=== PATIENT | male | born 1955 | race Caucasian/White ===

== ENCOUNTER 2016-08-04 18:18 | Emergency (ER) | payer OTHER ==
[~2016-08-04] VITALS: Ht 177.8 cm; Wt 82.0 kg
[2016-08-04] MEDS ORDERED: ONDANSETRON 2MG/ML, 2ML IVPush ONE (19:00)
[2016-08-04] MEDS ORDERED: SODIUM CHLORIDE FLUSH 10ML SYR IVF ONE (19:00)
[2016-08-04] MEDS ORDERED: SODIUM CHLORIDE 0.9% 1,000ML IVBOLUS ONE ×2 (19:00→22:00)
[2016-08-04 19:16] LABS: ASPARTATE AMINO TRANSFERASE 16 U/L (15-37); BLOOD UREA NITROGEN 15 mg/dL (7-18)
[2016-08-04] MEDS ORDERED: ONDANSETRON 2MG/ML, 2ML ONE (19:21)
[2016-08-04] MEDS ORDERED: PROCHLORPERAZINE 5 MG/ML, 2ML ONE (21:08)
[2016-08-04] MEDS ORDERED: MORPHINE SULFATE 4 MG/ML, 1ML ONE (21:28)
[2016-08-04] MEDS ORDERED: PROCHLORPERAZINE 5 MG/ML, 2ML IVPush ONE (21:30)
[2016-08-04 21:56] LABS: PATH.CAST-FLAG NOT PRESENT; SPERM-FLAG NOT PRESENT; SRC-FLAG NOT PRESENT; XTAL-FLAG NOT PRESENT; YLC-FLAG NOT PRESENT
[2016-08-04] MEDS ORDERED: MORPHINE SULFATE 4 MG/ML, 1ML IVPush PRN (22:00)
[2016-08-04 23:04] VITALS: BP 100/56
== END 2016-08-04 23:05 | disposition home or self-care (01) ==
LOC: ED 19:00
DX: R11.2 Nausea with vomiting, unspecified (principal); R10.13 Epigastric pain; E78.5 Hyperlipidemia, unspecified; I10 Essential (primary) hypertension; Z87.891 Personal history of nicotine dependence
CPT/HCPCS: 36415; 74020; 80053; 81001; 83690; 85025; 96361; 96374; 96375; 99285; J0780; J2405; J7030

== ENCOUNTER 2016-08-12 16:01 | Emergency (ER) | payer OTHER ==
[~2016-08-12] VITALS: Ht 177.8 cm; Wt 80.9 kg
[2016-08-12] MEDS ORDERED: ONDANSETRON 2MG/ML, 2ML IVPush ONE (16:30)
[2016-08-12] MEDS ORDERED: FAMOTIDINE 20 MG/2 ML IVP ONE (16:30)
[2016-08-12] MEDS ORDERED: SODIUM CHLORIDE 0.9% 1,000ML IVBOLUS ONE ×2 (16:30→17:00)
[2016-08-12] MEDS ORDERED: ONDANSETRON 2MG/ML, 2ML ONE (17:39)
[2016-08-12] MEDS ORDERED: FAMOTIDINE 20 MG/2 ML ONE (17:40)
[2016-08-12] MEDS ORDERED: MORPHINE SULFATE 4 MG/ML, 1ML IVPush PRN (18:30)
[2016-08-12 18:35] LABS: ASPARTATE AMINO TRANSFERASE 7 U/L (15-37); BLOOD UREA NITROGEN 13 mg/dL (7-18)
[2016-08-12] MEDS ORDERED: OMNIPAQUE 350 MG/ML, 100ML BOTTLE ONE (19:15)
[2016-08-12 21:16] VITALS: BP 126/63
== END 2016-08-12 21:18 | disposition home or self-care (01) ==
LOC: ED 16:37
DX: K29.00 Acute gastritis without bleeding (principal); E05.90 Thyrotoxicosis, unspecified without thyrotoxic crisis or storm; E78.5 Hyperlipidemia, unspecified; I10 Essential (primary) hypertension
CPT/HCPCS: 36415; 74177; 80053; 83690; 84439; 84443; 85025; 96361; 96374; 96375; 99285; J2405; J7030; Q9967; S0028

== ENCOUNTER 2016-08-17 12:00 | Inpatient (IN) | payer OTHER ==
[~2016-08-17] VITALS: Ht 177.8 cm; Wt 85.4 kg
[2016-08-17] MEDS ORDERED: MORPHINE SULFATE 4 MG/ML, 1ML ONE (13:28)
[2016-08-17] MEDS ORDERED: FAMOTIDINE 20 MG/2 ML ONE (13:28)
[2016-08-17] MEDS ORDERED: METOCLOPRAMIDE 5 MG/ML, 2ML ONE (13:28)
[2016-08-17] MEDS ORDERED: DIPHENHYDRAMINE 50 MG/ML, 1ML ONE (13:28)
[2016-08-17] MEDS ORDERED: DIPHENHYDRAMINE 50 MG/ML, 1ML IVPush ONE (13:30)
[2016-08-17] MEDS ORDERED: METOCLOPRAMIDE 5 MG/ML, 2ML IVPush ONE (13:30)
[2016-08-17] MEDS ORDERED: SODIUM CHLORIDE FLUSH 10ML SYR IVF ONE (13:30)
[2016-08-17] MEDS ORDERED: FAMOTIDINE 20 MG/2 ML IVPush ONE (13:30)
[2016-08-17] MEDS ORDERED: SODIUM CHLORIDE 0.9% 1,000ML IVBOLUS ONE (13:30)
[2016-08-17] MEDS: MORPHINE SULFATE 4 MG/ML, 1ML IVPush PRN (13:38)
[2016-08-17 13:47] LABS: ASPARTATE AMINO TRANSFERASE 8 U/L (15-37); BLOOD UREA NITROGEN 46 mg/dL (7-18)
[2016-08-17] MEDS ORDERED: LISI1TAB5 PO (14:10)
[2016-08-17] MEDS ORDERED: LOVA40TA2 PO (14:10)
[2016-08-17 14:13] LABS: IS PT STATUS REG ER OR PRE ER? YES
[2016-08-17 18:48] VITALS: BP 155/81
[2016-08-17] MEDS ORDERED: ONDANSETRON 2MG/ML, 2ML IVPush PRN (19:00)
[2016-08-17] MEDS ORDERED: METOCLOPRAMIDE 5 MG/ML, 2ML IVPush PRN (19:00)
[2016-08-17] MEDS: SODIUM CHLORIDE 0.9% 1,000 ML IV SCH (19:27)
[2016-08-17] MEDS ORDERED: POTASSIUM CHLORIDE 40 MEQ in SODIUM CHLORIDE 0.9% 500 ML IV ONE (19:30)
[2016-08-17 19:33] VITALS: BP 117/59
[2016-08-17] MEDS: HEPARIN 5,000 UNITS/ML, 1ML SQ SCH (19:33)
[2016-08-17] MEDS: LOVASTATIN 40 MG TABLET PO SCH (20:14)
[2016-08-17] MEDS: morphine SULFATE 10 MG/ML, 1ML IVPush PRN (22:48)
[2016-08-18 03:25] VITALS: BP 103/55
[2016-08-18] MEDS: morphine SULFATE 10 MG/ML, 1ML IVPush PRN ×4 (04:36→20:39)
[2016-08-18 06:21] VITALS: BP 101/65
[2016-08-18] MEDS: SODIUM CHLORIDE 0.9% 1,000 ML IV SCH (06:26)
[2016-08-18] MEDS: HEPARIN 5,000 UNITS/ML, 1ML SQ SCH ×2 (06:28→19:10)
[2016-08-18 07:34] LABS: BLOOD UREA NITROGEN 33 mg/dL (7-18)
[2016-08-18] MEDS: FAMOTIDINE 20 MG/2 ML IVPush SCH (09:12)
[2016-08-18] MEDS: MORPHINE SULFATE 4 MG/ML, 1ML IVPush PRN (09:12)
[2016-08-18 12:04] VITALS: BP 109/59
[2016-08-18] MEDS: PANTOPRAZOLE 80 MG in SODIUM CHLORIDE 0.9% 100 ML IV SCH (16:49)
[2016-08-18] MEDS ORDERED: POTASSIUM CHLORIDE 20 MEQ in SODIUM CHLORIDE 0.9% 1,000 ML IV SCH (18:34)
[2016-08-18 19:35] VITALS: BP 120/95
[2016-08-18] MEDS: LOVASTATIN 40 MG TABLET PO SCH (20:39)
[2016-08-19] MEDS: POTASSIUM CHLORIDE 20 MEQ in SODIUM CHLORIDE 0.9% 1,000 ML IV SCH ×3 (01:51→20:41)
[2016-08-19] MEDS: PANTOPRAZOLE 80 MG in SODIUM CHLORIDE 0.9% 100 ML IV SCH ×2 (01:51→16:17)
[2016-08-19 01:54] VITALS: BP 114/63
[2016-08-19] MEDS: morphine SULFATE 10 MG/ML, 1ML IVPush PRN (02:03)
[2016-08-19 05:57] LABS: ASPARTATE AMINO TRANSFERASE 12 U/L (15-37); BLOOD UREA NITROGEN 21 mg/dL (7-18)
[2016-08-19] MEDS: HEPARIN 5,000 UNITS/ML, 1ML SQ SCH ×2 (06:24→19:12)
[2016-08-19] MEDS ORDERED: MORPHINE SULFATE 4 MG/ML, 1ML ONE (08:15)
[2016-08-19 08:30] VITALS: BP 116/56
[2016-08-19] MEDS: FAMOTIDINE 20 MG/2 ML IVPush SCH (08:54)
[2016-08-19] MEDS ORDERED: FENTANYL PF 100 MCG/2ML ONE (12:42)
[2016-08-19] MEDS ORDERED: MIDAZOLAM 1 MG/ML, 5ML ONE (12:43)
[2016-08-19 14:30] VITALS: BP 122/71
[2016-08-19 20:00] VITALS: BP 151/84
[2016-08-19] MEDS: LOVASTATIN 40 MG TABLET PO SCH (20:39)
[2016-08-20 01:50] VITALS: BP 117/58
[2016-08-20] MEDS: PANTOPRAZOLE 80 MG in SODIUM CHLORIDE 0.9% 100 ML IV SCH ×3 (03:01→23:28)
[2016-08-20] MEDS: POTASSIUM CHLORIDE 20 MEQ in SODIUM CHLORIDE 0.9% 1,000 ML IV SCH ×3 (05:18→23:28)
[2016-08-20] MEDS: HEPARIN 5,000 UNITS/ML, 1ML SQ SCH ×2 (06:27→19:00)
[2016-08-20 08:30] VITALS: BP 149/75
[2016-08-20] MEDS: FAMOTIDINE 20 MG/2 ML IVPush SCH (09:19)
[2016-08-20] MEDS ORDERED: SINCALIDE (KINEVAC) 5 MCG ONE (13:12)
[2016-08-20 14:30] VITALS: BP 154/77
[2016-08-20] MEDS: morphine SULFATE 10 MG/ML, 1ML IVPush PRN ×2 (17:08→22:26)
[2016-08-20 19:25] VITALS: BP 104/68
[2016-08-20] MEDS: LOVASTATIN 40 MG TABLET PO SCH (21:07)
[2016-08-21 02:04] VITALS: BP 109/69
[2016-08-21] MEDS ORDERED: BUPIVACAINE/PF-EPI 0.5% 1:200K ONE (05:43)
[2016-08-21] MEDS ORDERED: FENTANYL PF 250 MCG/5ML ONE (06:44)
[2016-08-21] MEDS ORDERED: METOCLOPRAMIDE 5 MG/ML, 2ML ONE (06:51)
[2016-08-21] MEDS ORDERED: GLYCOPYRROLATE 0.2MG/1ML ONE (06:51)
[2016-08-21] MEDS ORDERED: PROPOFOL 10 MG/ML, 20ML ONE (06:51)
[2016-08-21] MEDS ORDERED: NEOSTIGMINE 1 MG/ML, 10ML ONE (06:51)
[2016-08-21] MEDS ORDERED: ONDANSETRON 2MG/ML, 2ML ONE (06:51)
[2016-08-21] MEDS ORDERED: SUCCINYLCHOLINE 20 MG/ML, 10ML ONE (06:51)
[2016-08-21] MEDS ORDERED: KETOROLAC 30 MG/1 ML ONE (06:51)
[2016-08-21] MEDS ORDERED: ROCURONIUM 10 MG/ML ONE (06:51)
[2016-08-21] MEDS ORDERED: DEXAMETHASONE 4 MG/ML, 1ML ONE (06:51)
[2016-08-21] MEDS ORDERED: CEFAZOLIN 1,000 MG ONE (06:51)
[2016-08-21] MEDS: HEPARIN 5,000 UNITS/ML, 1ML SQ SCH (07:00)
[2016-08-21] MEDS: POTASSIUM CHLORIDE 20 MEQ in SODIUM CHLORIDE 0.9% 1,000 ML IV SCH (07:10)
[2016-08-21] MEDS: FAMOTIDINE 20 MG/2 ML IVPush SCH (07:15)
[2016-08-21] MEDS ORDERED: ONDANSETRON 2MG/ML, 2ML IVPush PRN (07:30)
[2016-08-21] MEDS ORDERED: MEPERIDINE/PF 25MG/0.5ML IVPush PRN (07:30)
[2016-08-21] MEDS ORDERED: MIDAZOLAM 1 MG/ML, 2ML IV PRN (07:30)
[2016-08-21] MEDS ORDERED: OXYcodone 5 MG/5 ML ORAL.SOL UDC PO PRN (07:30)
[2016-08-21] MEDS ORDERED: FENTANYL PF 100 MCG/2ML ONE ×2 (07:37→08:00)
[2016-08-21] MEDS ORDERED: MEPERIDINE/PF 25MG/0.5ML ONE (07:37)
[2016-08-21] MEDS ORDERED: OXYcodone 5 MG/5 ML ORAL.SOL UDC ONE (07:37)
[2016-08-21] MEDS ORDERED: LABETALOL 5MG/ML, 20ML ONE (07:44)
[2016-08-21] MEDS: FENTANYL PF 100 MCG/2ML IV PRN ×4 (07:45→08:30)
[2016-08-21] MEDS: LABETALOL 5MG/ML, 20ML IV PRN ×2 (07:50→07:55)
[2016-08-21] MEDS ORDERED: hydrALAzine 20 MG/ML, 1ML ONE (07:54)
[2016-08-21] MEDS ORDERED: HYDROmorphone 1 MG/ML, 1ML ONE (08:00)
[2016-08-21] MEDS: hydrALAzine 20 MG/ML, 1ML IV PRN ×2 (08:01→08:26)
[2016-08-21] MEDS: HYDROmorphone 1 MG/ML, 1ML IV PRN ×2 (08:04→08:10)
[2016-08-21 09:15] VITALS: BP 142/78
[2016-08-21] MEDS ORDERED: POTASSIUM CHLORIDE 20 MEQ in SODIUM CHLORIDE 0.9% 1,000 ML IV SCH (09:30)
[2016-08-21] MEDS: NS + 20MEQ KCL 1,000 ML IV SCH ×2 (11:48→21:07)
[2016-08-21] MEDS: CEFOTETAN PMX 1GM/50ML 50 ML IVPB SCH ×2 (11:48→22:49)
[2016-08-21] MEDS: ENOXAPARIN 40 MG/0.4 ML SQ SCH (11:49)
[2016-08-21] MEDS: OXYcodone/APAP 5/325MG TABLET PO PRN ×2 (12:03→17:29)
[2016-08-21] MEDS: PANTOPRAZOLE 80 MG in SODIUM CHLORIDE 0.9% 100 ML IV SCH ×2 (12:03→21:07)
[2016-08-21] MEDS: morphine SULFATE 10 MG/ML, 1ML IV PRN ×3 (14:58→21:42)
[2016-08-21 15:00] VITALS: BP_SYST 148; BP_SYST 165; BP_DIAS 82; BP_DIAS 84
[2016-08-21 19:01] VITALS: BP 162/87
[2016-08-21] MEDS: LOVASTATIN 40 MG TABLET PO SCH (21:07)
[2016-08-21] MEDS: ONDANSETRON 2MG/ML, 2ML IV PRN (21:41)
[2016-08-22] MEDS: morphine SULFATE 10 MG/ML, 1ML IV PRN ×3 (00:46→21:24)
[2016-08-22 01:05] VITALS: BP 158/84
[2016-08-22] MEDS: TEMAZEPAM 15 MG CAPSULE PO PRN (02:01)
[2016-08-22] MEDS: OXYcodone/APAP 5/325MG TABLET PO PRN ×3 (04:32→22:12)
[2016-08-22] MEDS: NS + 20MEQ KCL 1,000 ML IV SCH ×2 (05:53→14:07)
[2016-08-22 05:58] LABS: BLOOD UREA NITROGEN 6 mg/dL (7-18)
[2016-08-22 06:03] LABS: ASPARTATE AMINO TRANSFERASE 26 U/L (15-37)
[2016-08-22 06:37] VITALS: BP 137/86
[2016-08-22] MEDS: PANTOPRAZOLE 80 MG in SODIUM CHLORIDE 0.9% 100 ML IV SCH (07:41)
[2016-08-22] MEDS ORDERED: BISACODYL 10 MG SUPP PR PRN (09:30)
[2016-08-22] MEDS: DOCUSATE 100 MG CAPSULE PO SCH ×2 (10:27→21:23)
[2016-08-22] MEDS: FAMOTIDINE 20 MG TABLET PO SCH (10:27)
[2016-08-22] MEDS: OMEPRAZOLE 20 MG CAPSULE.DR PO SCH (10:27)
[2016-08-22] MEDS: ENOXAPARIN 40 MG/0.4 ML SQ SCH (12:00)
[2016-08-22 12:05] VITALS: BP 131/77
[2016-08-22] MEDS: POLYETHYLENE GLYCOL 17 GM PACKET PO PRN (14:29)
[2016-08-22 19:08] VITALS: BP 164/94
[2016-08-22] MEDS: LOVASTATIN 40 MG TABLET PO SCH (21:23)
[2016-08-23 02:25] VITALS: BP 156/89
[2016-08-23] MEDS: NS + 20MEQ KCL 1,000 ML IV SCH ×2 (02:36→15:43)
[2016-08-23] MEDS: morphine SULFATE 10 MG/ML, 1ML IV PRN ×3 (03:45→21:02)
[2016-08-23 05:46] LABS: BLOOD UREA NITROGEN 7 mg/dL (7-18)
[2016-08-23 06:30] VITALS: BP 160/86
[2016-08-23] MEDS: DOCUSATE 100 MG CAPSULE PO SCH ×2 (09:18→20:46)
[2016-08-23] MEDS: OMEPRAZOLE 20 MG CAPSULE.DR PO SCH (09:18)
[2016-08-23] MEDS: FAMOTIDINE 20 MG TABLET PO SCH (09:18)
[2016-08-23] MEDS: ONDANSETRON 2MG/ML, 2ML IV PRN (09:22)
[2016-08-23] MEDS: OXYcodone/APAP 5/325MG TABLET PO PRN (11:02)
[2016-08-23] MEDS: ENOXAPARIN 40 MG/0.4 ML SQ SCH (12:11)
[2016-08-23 12:52] VITALS: BP 148/83
[2016-08-23] MEDS ORDERED: MAGNESIUM CITRATE 300ML ORAL SOL PO PRN (13:30)
[2016-08-23] MEDS: METOCLOPRAMIDE 5 MG/ML, 2ML IVPush SCH ×2 (14:01→20:46)
[2016-08-23] MEDS: METHYLNALTREXONE 12 MG/0.6 ML SQ SCH (14:02)
[2016-08-23] MEDS: CYCLOBENZAPRINE 10 MG TABLET PO PRN (15:43)
[2016-08-23 19:14] VITALS: BP 175/99
[2016-08-23 20:34] VITALS: BP 165/97
[2016-08-23] MEDS: LOVASTATIN 40 MG TABLET PO SCH (20:46)
[2016-08-24 01:40] VITALS: BP 157/92
[2016-08-24] MEDS: morphine SULFATE 10 MG/ML, 1ML IV PRN ×3 (02:08→11:48)
[2016-08-24] MEDS: METOCLOPRAMIDE 5 MG/ML, 2ML IVPush SCH ×4 (02:09→20:43)
[2016-08-24] MEDS: CYCLOBENZAPRINE 10 MG TABLET PO PRN (02:27)
[2016-08-24] MEDS ORDERED: LORazepam 1MG TABLET PO ONE (02:30)
[2016-08-24] MEDS: NS + 20MEQ KCL 1,000 ML IV SCH ×2 (05:53→18:34)
[2016-08-24 06:13] LABS: BLOOD UREA NITROGEN 8 mg/dL (7-18)
[2016-08-24 07:51] VITALS: BP 169/105
[2016-08-24] MEDS: DOCUSATE 100 MG CAPSULE PO SCH ×2 (08:55→20:42)
[2016-08-24] MEDS: OXYcodone/APAP 5/325MG TABLET PO PRN ×3 (08:55→22:36)
[2016-08-24] MEDS: POLYETHYLENE GLYCOL 17 GM PACKET PO PRN (08:55)
[2016-08-24] MEDS: FAMOTIDINE 20 MG TABLET PO SCH (08:55)
[2016-08-24] MEDS: OMEPRAZOLE 20 MG CAPSULE.DR PO SCH (08:55)
[2016-08-24] MEDS ORDERED: ENALAPRILAT 1.25 MG/ML, 2ML IV PRN (09:30)
[2016-08-24] MEDS: ENOXAPARIN 40 MG/0.4 ML SQ SCH (11:48)
[2016-08-24 12:45] VITALS: BP 137/85
[2016-08-24 20:39] VITALS: BP 138/76
[2016-08-24] MEDS: LOVASTATIN 40 MG TABLET PO SCH (20:43)
[2016-08-25] MEDS: METOCLOPRAMIDE 5 MG/ML, 2ML IVPush SCH ×4 (03:27→20:34)
[2016-08-25] MEDS: OXYcodone/APAP 5/325MG TABLET PO PRN ×4 (03:29→18:33)
[2016-08-25 03:31] VITALS: BP 128/84
[2016-08-25 06:00] LABS: ASPARTATE AMINO TRANSFERASE 26 U/L (15-37); BLOOD UREA NITROGEN 7 mg/dL (7-18)
[2016-08-25 07:26] VITALS: BP 159/91
[2016-08-25] MEDS: DOCUSATE 100 MG CAPSULE PO SCH ×2 (08:18→20:35)
[2016-08-25] MEDS: NS + 20MEQ KCL 1,000 ML IV SCH (08:18)
[2016-08-25] MEDS: OMEPRAZOLE 20 MG CAPSULE.DR PO SCH (08:18)
[2016-08-25] MEDS: FAMOTIDINE 20 MG TABLET PO SCH (08:18)
[2016-08-25] MEDS: POLYETHYLENE GLYCOL 17 GM PACKET PO PRN (08:28)
[2016-08-25] MEDS: ENOXAPARIN 40 MG/0.4 ML SQ SCH (11:48)
[2016-08-25 12:58] VITALS: BP 111/80
[2016-08-25] MEDS: METHYLNALTREXONE 12 MG/0.6 ML SQ SCH (13:30)
[2016-08-25 18:22] VITALS: BP 112/77
[2016-08-25] MEDS: LOVASTATIN 40 MG TABLET PO SCH (20:35)
[2016-08-25] MEDS: morphine SULFATE 10 MG/ML, 1ML IV PRN (20:35)
[2016-08-25] MEDS ORDERED: SODIUM CHLORIDE 0.9% 500 ML IV SCH (22:30)
[2016-08-26] MEDS ORDERED: SODIUM CHLORIDE 0.9% 500 ML IV SCH (00:30)
[2016-08-26 00:50] VITALS: BP 126/83
[2016-08-26 01:42] VITALS: BP 125/88
[2016-08-26] MEDS ORDERED: DILTIAZEM 5 MG/ML, 5ML IVPush ONE ×2 (02:20→09:30)
[2016-08-26] MEDS: METOCLOPRAMIDE 5 MG/ML, 2ML IVPush SCH ×4 (06:07→20:38)
[2016-08-26] MEDS: OXYcodone/APAP 5/325MG TABLET PO PRN ×3 (06:09→20:39)
[2016-08-26 08:21] VITALS: BP 118/89
[2016-08-26] MEDS: morphine SULFATE 10 MG/ML, 1ML IV PRN ×2 (09:02→18:10)
[2016-08-26] MEDS: OMEPRAZOLE 20 MG CAPSULE.DR PO SCH (09:02)
[2016-08-26] MEDS: DOCUSATE 100 MG CAPSULE PO SCH ×2 (09:02→20:38)
[2016-08-26] MEDS: FAMOTIDINE 20 MG TABLET PO SCH (09:02)
[2016-08-26] MEDS ORDERED: OMNIPAQUE 350 MG/ML, 100ML BOTTLE ONE (10:14)
[2016-08-26] MEDS ORDERED: METOPROLOL 1 MG/ML, 5ML IVPush ONE (11:00)
[2016-08-26 11:11] LABS: BLOOD UREA NITROGEN 7 mg/dL (7-18)
[2016-08-26 11:15] LABS: IS PT STATUS REG ER OR PRE ER? NO
[2016-08-26] MEDS: ENOXAPARIN 40 MG/0.4 ML SQ SCH (11:27)
[2016-08-26] MEDS: METOPROLOL TARTRATE 25 MG TABLET PO SCH ×2 (12:48→18:10)
[2016-08-26 14:49] VITALS: BP 112/83
[2016-08-26 18:58] VITALS: BP 107/75
[2016-08-26] MEDS: LOVASTATIN 40 MG TABLET PO SCH (20:39)
[2016-08-26] MEDS: TEMAZEPAM 15 MG CAPSULE PO PRN (20:39)
[2016-08-27] MEDS: morphine SULFATE 10 MG/ML, 1ML IV PRN ×4 (00:17→19:32)
[2016-08-27 02:15] VITALS: BP 112/84
[2016-08-27] MEDS: METOCLOPRAMIDE 5 MG/ML, 2ML IVPush SCH ×4 (03:04→20:16)
[2016-08-27] MEDS: METOPROLOL TARTRATE 25 MG TABLET PO SCH ×2 (06:03→17:29)
[2016-08-27 08:00] VITALS: BP 121/81
[2016-08-27] MEDS ORDERED: MAGNESIUM SULFATE PMX 2GM/50ML 50 ML IV ONE (08:00)
[2016-08-27] MEDS ORDERED: ADENOSINE 6 MG/2 ML IVPush ONE (08:00)
[2016-08-27] MEDS: FAMOTIDINE 20 MG TABLET PO SCH (08:03)
[2016-08-27] MEDS: OMEPRAZOLE 20 MG CAPSULE.DR PO SCH (08:03)
[2016-08-27] MEDS: DOCUSATE 100 MG CAPSULE PO SCH ×2 (08:03→20:16)
[2016-08-27] MEDS: APIXABAN 5 MG TABLET PO SCH ×2 (10:35→20:16)
[2016-08-27] MEDS: FLECAINIDE 50MG TABLET PO SCH ×2 (10:36→20:17)
[2016-08-27] MEDS: CIPROFLOXACIN/PMX 400MG/200ML 200 ML IV SCH ×2 (12:40→23:12)
[2016-08-27] MEDS: OXYcodone/APAP 5/325MG TABLET PO PRN ×2 (12:40→20:17)
[2016-08-27] MEDS: METHYLNALTREXONE 12 MG/0.6 ML SQ SCH (12:40)
[2016-08-27 13:57] VITALS: BP 101/72
[2016-08-27] MEDS: METRONIDAZOLE PMX 500MG/100ML 100 ML IV SCH ×2 (14:48→22:01)
[2016-08-27 19:36] VITALS: BP 113/72
[2016-08-27] MEDS: LOVASTATIN 40 MG TABLET PO SCH (20:16)
[2016-08-28 01:25] VITALS: BP 110/73
[2016-08-28] MEDS: morphine SULFATE 10 MG/ML, 1ML IV PRN ×3 (01:42→06:14)
[2016-08-28] MEDS: OXYcodone/APAP 5/325MG TABLET PO PRN ×2 (02:02→21:05)
[2016-08-28] MEDS: METOCLOPRAMIDE 5 MG/ML, 2ML IVPush SCH ×4 (02:58→20:37)
[2016-08-28 06:00] LABS: BLOOD UREA NITROGEN 5 mg/dL (7-18)
[2016-08-28] MEDS: METOPROLOL TARTRATE 25 MG TABLET PO SCH ×2 (06:08→18:18)
[2016-08-28] MEDS: METRONIDAZOLE PMX 500MG/100ML 100 ML IV SCH ×3 (06:08→20:55)
[2016-08-28 07:16] LABS: HEPATITIS C VIRUS ANTIBODY Reactive (Nonreactive)
[2016-08-28 08:25] VITALS: BP 104/74
[2016-08-28] MEDS: HYDROmorphone 2 MG/ML, 1ML IVPush PRN ×5 (10:05→20:22)
[2016-08-28] MEDS: FLECAINIDE 50MG TABLET PO SCH (10:14)
[2016-08-28] MEDS: OMEPRAZOLE 20 MG CAPSULE.DR PO SCH (10:14)
[2016-08-28] MEDS: DOCUSATE 100 MG CAPSULE PO SCH ×2 (10:14→20:37)
[2016-08-28] MEDS: FAMOTIDINE 20 MG TABLET PO SCH (10:15)
[2016-08-28] MEDS: APIXABAN 5 MG TABLET PO SCH (10:15)
[2016-08-28] MEDS ORDERED: HEPARIN 5,000 UNITS/ML, 1ML IV PRN (11:00)
[2016-08-28] MEDS ORDERED: HEPARIN 5,000 UNITS/ML, 1ML IV ONE ×2 (11:00→13:00)
[2016-08-28] MEDS ORDERED: HEPARIN 25,000 UNITS/500ML PMX 500 ML IV PRN (11:00)
[2016-08-28] MEDS: CIPROFLOXACIN/PMX 400MG/200ML 200 ML IV SCH ×2 (11:32→22:29)
[2016-08-28 15:01] VITALS: BP 105/70
[2016-08-28 19:00] VITALS: BP 113/77
[2016-08-28] MEDS ORDERED: HEPARIN 1,000 UNITS/ML, 10ML IV ONE (19:00)
[2016-08-28] MEDS: LOVASTATIN 40 MG TABLET PO SCH (20:37)
[2016-08-28] MEDS: FLECAINIDE 100MG TABLET PO SCH (20:38)
[2016-08-28] MEDS: SIMETHICONE 80 MG CHEW TAB PO PRN (22:29)
[2016-08-29 00:43] VITALS: BP 121/83
[2016-08-29] MEDS: HYDROmorphone 2 MG/ML, 1ML IVPush PRN ×5 (00:45→17:27)
[2016-08-29] MEDS: OXYcodone/APAP 5/325MG TABLET PO PRN ×3 (02:27→20:18)
[2016-08-29] MEDS: METOCLOPRAMIDE 5 MG/ML, 2ML IVPush SCH ×4 (02:28→20:22)
[2016-08-29 03:19] LABS: BLOOD UREA NITROGEN 8 mg/dL (7-18)
[2016-08-29] MEDS: METOPROLOL TARTRATE 25 MG TABLET PO SCH ×2 (06:18→17:26)
[2016-08-29] MEDS: SIMETHICONE 80 MG CHEW TAB PO PRN ×3 (06:18→20:22)
[2016-08-29] MEDS: METRONIDAZOLE PMX 500MG/100ML 100 ML IV SCH ×3 (06:31→21:45)
[2016-08-29] MEDS: FLECAINIDE 100MG TABLET PO SCH ×2 (08:21→20:24)
[2016-08-29] MEDS: OMEPRAZOLE 20 MG CAPSULE.DR PO SCH (08:22)
[2016-08-29] MEDS: DOCUSATE 100 MG CAPSULE PO SCH ×2 (08:22→20:22)
[2016-08-29] MEDS: FAMOTIDINE 20 MG TABLET PO SCH (08:22)
[2016-08-29 08:33] VITALS: BP 112/76
[2016-08-29] MEDS: CIPROFLOXACIN/PMX 400MG/200ML 200 ML IV SCH ×2 (10:46→22:57)
[2016-08-29] MEDS: ONDANSETRON 2MG/ML, 2ML IV PRN (13:08)
[2016-08-29] MEDS: METHYLNALTREXONE 12 MG/0.6 ML SQ SCH (13:58)
[2016-08-29 14:39] VITALS: BP 121/81
[2016-08-29 20:00] VITALS: BP 116/77
[2016-08-29] MEDS: LOVASTATIN 40 MG TABLET PO SCH (20:23)
[2016-08-30] MEDS: OXYcodone/APAP 5/325MG TABLET PO PRN ×3 (00:25→19:43)
[2016-08-30 01:45] VITALS: BP 114/76
[2016-08-30] MEDS: METOCLOPRAMIDE 5 MG/ML, 2ML IVPush SCH ×4 (03:00→21:52)
[2016-08-30 06:08] LABS: BLOOD UREA NITROGEN 10 mg/dL (7-18)
[2016-08-30 06:12] LABS: ASPARTATE AMINO TRANSFERASE 8 U/L (15-37)
[2016-08-30] MEDS: METOPROLOL TARTRATE 25 MG TABLET PO SCH ×2 (06:22→17:45)
[2016-08-30] MEDS: METRONIDAZOLE PMX 500MG/100ML 100 ML IV SCH ×3 (06:23→21:59)
[2016-08-30] MEDS: HYDROmorphone 2 MG/ML, 1ML IVPush PRN ×5 (06:27→21:51)
[2016-08-30] MEDS: FLECAINIDE 100MG TABLET PO SCH ×2 (08:19→21:51)
[2016-08-30] MEDS: DOCUSATE 100 MG CAPSULE PO SCH ×2 (08:19→21:59)
[2016-08-30] MEDS: FAMOTIDINE 20 MG TABLET PO SCH (08:19)
[2016-08-30] MEDS: OMEPRAZOLE 20 MG CAPSULE.DR PO SCH (08:20)
[2016-08-30 09:15] VITALS: BP 108/73
[2016-08-30] MEDS ORDERED: MIDAZOLAM 1 MG/ML, 2ML ONE (09:55)
[2016-08-30] MEDS ORDERED: FENTANYL PF 100 MCG/2ML ONE (09:55)
[2016-08-30] MEDS: CIPROFLOXACIN/PMX 400MG/200ML 200 ML IV SCH (12:50)
[2016-08-30] MEDS ORDERED: SUCCINYLCHOLINE 20 MG/ML, 10ML ONE (15:23)
[2016-08-30] MEDS ORDERED: ROCURONIUM 10 MG/ML ONE (15:23)
[2016-08-30] MEDS ORDERED: PHENYLEPHRINE 10 MG/ML ONE (15:23)
[2016-08-30] MEDS ORDERED: DEXAMETHASONE 4 MG/ML, 1ML ONE (15:23)
[2016-08-30] MEDS ORDERED: ONDANSETRON 2MG/ML, 2ML ONE (15:23)
[2016-08-30] MEDS ORDERED: PROPOFOL 10 MG/ML, 20ML ONE (15:23)
[2016-08-30] MEDS: SIMETHICONE 80 MG CHEW TAB PO PRN (17:45)
[2016-08-30 19:01] VITALS: BP 108/71
[2016-08-30] MEDS: LOVASTATIN 40 MG TABLET PO SCH (21:51)
[2016-08-31] MEDS: OXYcodone/APAP 5/325MG TABLET PO PRN ×3 (01:05→21:07)
[2016-08-31] MEDS: CIPROFLOXACIN/PMX 400MG/200ML 200 ML IV SCH ×2 (01:09→13:16)
[2016-08-31] MEDS: HYDROmorphone 2 MG/ML, 1ML IVPush PRN ×5 (03:28→22:41)
[2016-08-31] MEDS: METOCLOPRAMIDE 5 MG/ML, 2ML IVPush SCH ×4 (03:28→21:06)
[2016-08-31 03:33] VITALS: BP 131/81
[2016-08-31 05:51] LABS: BLOOD UREA NITROGEN 9 mg/dL (7-18)
[2016-08-31 05:52] LABS: ASPARTATE AMINO TRANSFERASE 17 U/L (15-37)
[2016-08-31 05:54] LABS: DIFF TOTAL CELLS COUNTED 100 CELL DIFF
[2016-08-31 05:55] LABS: VERIFY COUNTS? YES
[2016-08-31] MEDS: METOPROLOL TARTRATE 25 MG TABLET PO SCH ×2 (05:56→17:27)
[2016-08-31 05:57] LABS: LARGE PLATELETS 1+
[2016-08-31] MEDS: METRONIDAZOLE PMX 500MG/100ML 100 ML IV SCH ×3 (05:57→22:41)
[2016-08-31] MEDS ORDERED: FUROSEMIDE 40 MG/4 ML IV ONE (07:35)
[2016-08-31 08:24] VITALS: BP 115/79
[2016-08-31] MEDS: OMEPRAZOLE 20 MG CAPSULE.DR PO SCH (08:24)
[2016-08-31] MEDS: DOCUSATE 100 MG CAPSULE PO SCH ×2 (08:24→21:00)
[2016-08-31] MEDS: FLECAINIDE 100MG TABLET PO SCH ×2 (08:24→21:07)
[2016-08-31] MEDS: FAMOTIDINE 20 MG TABLET PO SCH (08:24)
[2016-08-31] MEDS: METHYLNALTREXONE 12 MG/0.6 ML SQ SCH (13:17)
[2016-08-31 21:05] VITALS: BP 112/75
[2016-08-31] MEDS: LOVASTATIN 40 MG TABLET PO SCH (21:07)
[2016-09-01] MEDS: CIPROFLOXACIN/PMX 400MG/200ML 200 ML IV SCH ×2 (01:18→14:00)
[2016-09-01 01:21] VITALS: BP 119/79
[2016-09-01] MEDS: TEMAZEPAM 15 MG CAPSULE PO PRN (02:23)
[2016-09-01] MEDS: METOCLOPRAMIDE 5 MG/ML, 2ML IVPush SCH ×2 (03:27→08:54)
[2016-09-01 05:26] LABS: BLOOD UREA NITROGEN 10 mg/dL (7-18)
[2016-09-01 05:31] LABS: ASPARTATE AMINO TRANSFERASE 18 U/L (15-37)
[2016-09-01] MEDS: METRONIDAZOLE PMX 500MG/100ML 100 ML IV SCH ×3 (06:39→22:49)
[2016-09-01] MEDS: METOPROLOL TARTRATE 25 MG TABLET PO SCH ×2 (06:39→17:22)
[2016-09-01 07:37] VITALS: BP 123/73
[2016-09-01] MEDS ORDERED: FUROSEMIDE 40 MG/4 ML IV ONE (08:30)
[2016-09-01] MEDS: DOCUSATE 100 MG CAPSULE PO SCH ×2 (08:48→21:00)
[2016-09-01] MEDS: FAMOTIDINE 20 MG TABLET PO SCH (08:54)
[2016-09-01] MEDS: OMEPRAZOLE 20 MG CAPSULE.DR PO SCH (08:54)
[2016-09-01] MEDS: FLECAINIDE 100MG TABLET PO SCH ×2 (08:55→20:47)
[2016-09-01] MEDS: HYDROmorphone 2 MG/ML, 1ML IVPush PRN ×4 (09:10→20:45)
[2016-09-01] MEDS: OXYcodone/APAP 5/325MG TABLET PO PRN ×2 (14:12→22:53)
[2016-09-01 15:03] VITALS: BP 120/77
[2016-09-01] MEDS ORDERED: LIDOCAINE 1%, 20ML ONE (18:37)
[2016-09-01 19:37] VITALS: BP 95/59
[2016-09-01] MEDS: LOVASTATIN 40 MG TABLET PO SCH (20:48)
[2016-09-02 00:20] VITALS: BP 98/64
[2016-09-02] MEDS: CIPROFLOXACIN/PMX 400MG/200ML 200 ML IV SCH ×2 (01:06→13:32)
[2016-09-02] MEDS: HYDROmorphone 2 MG/ML, 1ML IVPush PRN ×5 (02:37→21:05)
[2016-09-02] MEDS: OXYcodone/APAP 5/325MG TABLET PO PRN ×4 (04:25→21:23)
[2016-09-02 05:28] LABS: ASPARTATE AMINO TRANSFERASE 18 U/L (15-37); BLOOD UREA NITROGEN 6 mg/dL (7-18)
[2016-09-02] MEDS: METRONIDAZOLE PMX 500MG/100ML 100 ML IV SCH ×3 (06:49→21:34)
[2016-09-02] MEDS: METOPROLOL TARTRATE 25 MG TABLET PO SCH ×2 (06:50→17:24)
[2016-09-02 07:14] VITALS: BP 118/71
[2016-09-02] MEDS: FLECAINIDE 100MG TABLET PO SCH ×2 (08:00→22:32)
[2016-09-02] MEDS: FAMOTIDINE 20 MG TABLET PO SCH (08:01)
[2016-09-02] MEDS: DOCUSATE 100 MG CAPSULE PO SCH ×2 (08:01→21:19)
[2016-09-02] MEDS ORDERED: POTASSIUM CHLORIDE 20 MEQ TAB.ER.PRT PO ONE (09:00)
[2016-09-02] MEDS: FUROSEMIDE 40 MG/4 ML IV SCH (09:50)
[2016-09-02] MEDS: METHYLNALTREXONE 12 MG/0.6 ML SQ SCH (13:30)
[2016-09-02 14:42] VITALS: BP 107/69
[2016-09-02 19:34] VITALS: BP 115/75
[2016-09-02 20:14] VITALS: BP 116/66
[2016-09-02] MEDS: SIMETHICONE 80 MG CHEW TAB PO PRN (21:08)
[2016-09-02] MEDS: LOVASTATIN 40 MG TABLET PO SCH (21:19)
[2016-09-03] MEDS: CIPROFLOXACIN/PMX 400MG/200ML 200 ML IV SCH ×2 (00:52→12:11)
[2016-09-03] MEDS: HYDROmorphone 2 MG/ML, 1ML IVPush PRN ×3 (00:52→19:07)
[2016-09-03] MEDS: TEMAZEPAM 15 MG CAPSULE PO PRN ×2 (00:52→21:23)
[2016-09-03 02:00] VITALS: BP 105/66
[2016-09-03] MEDS: OXYcodone/APAP 5/325MG TABLET PO PRN ×3 (02:25→13:23)
[2016-09-03] MEDS: SIMETHICONE 80 MG CHEW TAB PO PRN ×4 (02:25→21:21)
[2016-09-03] MEDS: METRONIDAZOLE PMX 500MG/100ML 100 ML IV SCH ×3 (05:47→21:20)
[2016-09-03] MEDS: METOPROLOL TARTRATE 25 MG TABLET PO SCH ×2 (05:47→17:00)
[2016-09-03 06:38] LABS: BLOOD UREA NITROGEN 6 mg/dL (7-18)
[2016-09-03] MEDS ORDERED: POTASSIUM CHLORIDE 20 MEQ TAB.ER.PRT PO ONE (07:00)
[2016-09-03 07:03] LABS: DIFF TOTAL CELLS COUNTED 100 CELL DIFF
[2016-09-03 07:06] LABS: VERIFY COUNTS? YES
[2016-09-03 07:10] LABS: POIKILOCYTOSIS 1+
[2016-09-03 08:22] VITALS: BP 100/62
[2016-09-03] MEDS: FUROSEMIDE 40 MG/4 ML IV SCH (09:14)
[2016-09-03] MEDS: FLECAINIDE 100MG TABLET PO SCH ×2 (09:15→21:21)
[2016-09-03] MEDS: DOCUSATE 100 MG CAPSULE PO SCH ×2 (09:15→21:21)
[2016-09-03] MEDS: ENOXAPARIN 80 MG/0.8 ML SQ SCH ×2 (13:56→21:21)
[2016-09-03] MEDS: FLUCONAZOLE 200 MG TABLET PO SCH (13:56)
[2016-09-03 15:10] VITALS: BP 106/68
[2016-09-03 20:00] VITALS: BP 104/66
[2016-09-03] MEDS: LOVASTATIN 40 MG TABLET PO SCH (21:20)
[2016-09-04] MEDS: OXYcodone/APAP 5/325MG TABLET PO PRN ×3 (00:12→18:40)
[2016-09-04] MEDS: CIPROFLOXACIN/PMX 400MG/200ML 200 ML IV SCH ×2 (00:12→13:40)
[2016-09-04] MEDS: HYDROmorphone 2 MG/ML, 1ML IVPush PRN ×4 (03:10→21:20)
[2016-09-04 05:35] LABS: DIFF TOTAL CELLS COUNTED 100 CELL DIFF
[2016-09-04 05:36] LABS: BLOOD UREA NITROGEN 5 mg/dL (7-18)
[2016-09-04 05:38] LABS: VERIFY COUNTS? YES
[2016-09-04 05:40] LABS: POLYCHROMASIA 1+
[2016-09-04] MEDS: METOPROLOL TARTRATE 25 MG TABLET PO SCH ×2 (06:15→17:41)
[2016-09-04] MEDS: METRONIDAZOLE PMX 500MG/100ML 100 ML IV SCH ×3 (06:16→21:19)
[2016-09-04 07:51] VITALS: BP 103/65
[2016-09-04] MEDS: FUROSEMIDE 40 MG/4 ML IV SCH (10:08)
[2016-09-04] MEDS: DOCUSATE 100 MG CAPSULE PO SCH ×2 (10:12→21:19)
[2016-09-04] MEDS: FLECAINIDE 100MG TABLET PO SCH ×2 (10:13→21:20)
[2016-09-04] MEDS: FLUCONAZOLE 200 MG TABLET PO SCH (10:14)
[2016-09-04] MEDS: ASCORBIC ACID 500 MG TABLET PO SCH (10:14)
[2016-09-04] MEDS: FERROUS SULFATE 220 MG/5 ML ORAL SOL PO SCH (10:20)
[2016-09-04] MEDS: METHYLNALTREXONE 12 MG/0.6 ML SQ SCH (13:27)
[2016-09-04 13:37] VITALS: BP 130/78
[2016-09-04] MEDS: ENOXAPARIN 80 MG/0.8 ML SQ SCH (13:41)
[2016-09-04 17:41] VITALS: BP 123/75
[2016-09-04 19:30] VITALS: BP 114/70
[2016-09-04] MEDS: SIMETHICONE 80 MG CHEW TAB PO PRN (21:20)
[2016-09-04] MEDS: LOVASTATIN 40 MG TABLET PO SCH (21:21)
[2016-09-05] MEDS: TEMAZEPAM 15 MG CAPSULE PO PRN ×2 (01:02→22:37)
[2016-09-05] MEDS: OXYcodone/APAP 5/325MG TABLET PO PRN ×2 (01:02→14:34)
[2016-09-05] MEDS: CIPROFLOXACIN/PMX 400MG/200ML 200 ML IV SCH ×2 (01:03→12:18)
[2016-09-05 02:00] VITALS: BP 111/69
[2016-09-05] MEDS: HYDROmorphone 2 MG/ML, 1ML IVPush PRN ×3 (04:28→19:48)
[2016-09-05] MEDS: ENOXAPARIN 80 MG/0.8 ML SQ SCH ×2 (06:06→22:35)
[2016-09-05] MEDS: METOPROLOL TARTRATE 25 MG TABLET PO SCH ×2 (06:06→17:40)
[2016-09-05] MEDS: METRONIDAZOLE PMX 500MG/100ML 100 ML IV SCH ×3 (06:06→22:36)
[2016-09-05 06:36] LABS: BLOOD UREA NITROGEN 5 mg/dL (7-18)
[2016-09-05 07:18] VITALS: BP 111/72
[2016-09-05] MEDS: DOCUSATE 100 MG CAPSULE PO SCH ×2 (09:00→22:35)
[2016-09-05] MEDS: FLUCONAZOLE 200 MG TABLET PO SCH (09:41)
[2016-09-05] MEDS: FUROSEMIDE 40 MG/4 ML IV SCH (09:41)
[2016-09-05] MEDS: FERROUS SULFATE 220 MG/5 ML ORAL SOL PO SCH (09:41)
[2016-09-05] MEDS: FLECAINIDE 100MG TABLET PO SCH ×2 (09:42→22:36)
[2016-09-05] MEDS: ASCORBIC ACID 500 MG TABLET PO SCH (09:44)
[2016-09-05 13:27] VITALS: BP 105/65
[2016-09-05 19:46] VITALS: BP 100/57
[2016-09-05] MEDS: LOVASTATIN 40 MG TABLET PO SCH (22:35)
[2016-09-05] MEDS: SIMETHICONE 80 MG CHEW TAB PO PRN (23:08)
[2016-09-06] MEDS: CIPROFLOXACIN/PMX 400MG/200ML 200 ML IV SCH (00:52)
[2016-09-06] MEDS: HYDROmorphone 2 MG/ML, 1ML IVPush PRN ×2 (01:20→05:59)
[2016-09-06 02:00] VITALS: BP 104/69
[2016-09-06] MEDS: METOPROLOL TARTRATE 25 MG TABLET PO SCH (05:50)
[2016-09-06] MEDS: METRONIDAZOLE PMX 500MG/100ML 100 ML IV SCH (05:51)
[2016-09-06] MEDS ORDERED: CIPR500T87 PO (08:35)
[2016-09-06] MEDS ORDERED: METO25TA35 PO (08:35)
[2016-09-06] MEDS ORDERED: FLUC200T PO (08:35)
[2016-09-06] MEDS ORDERED: METR500T PO (08:35)
[2016-09-06] MEDS ORDERED: FLEC100T PO (08:35)
[2016-09-06] MEDS ORDERED: ASCO500T6 PO (08:35)
[2016-09-06] MEDS ORDERED: METH10TA6 PO (08:35)
[2016-09-06] MEDS ORDERED: OXYC5CAP4 PO (08:35)
[2016-09-06] MEDS ORDERED: DOCU-30 PO (08:35)
[2016-09-06] MEDS ORDERED: OXYC1TAB7 PO (08:35)
[2016-09-06 09:07] VITALS: BP 129/79
[2016-09-06] MEDS: FUROSEMIDE 40 MG/4 ML IV SCH (09:10)
[2016-09-06] MEDS: DOCUSATE 100 MG CAPSULE PO SCH (09:11)
[2016-09-06] MEDS: ASCORBIC ACID 500 MG TABLET PO SCH (09:12)
[2016-09-06] MEDS: FLUCONAZOLE 200 MG TABLET PO SCH (09:12)
[2016-09-06] MEDS: FERROUS SULFATE 220 MG/5 ML ORAL SOL PO SCH (09:13)
[2016-09-06] MEDS: FLECAINIDE 100MG TABLET PO SCH (09:15)
[2016-09-06] MEDS: OXYcodone/APAP 5/325MG TABLET PO PRN (09:18)
[2016-09-06] MEDS: ENOXAPARIN 80 MG/0.8 ML SQ SCH (10:35)
== END 2016-09-06 12:35 | disposition home or self-care (01) | DRG 853 ==
LOC: ED 14:13 → EDIP 15:37 → 3NE 17:03 → 4WST 08-26 02:12 → 5SO 08-27 08:36 → DCLOUNGE 09-06 11:52
PROC: 0DB68ZX Excision of Stomach, Via Natural or Artificial Opening Endoscopic, Diagnostic (ICD-10-PCS; 2016-08-17)
PROC: 0FT44ZZ Resection of Gallbladder, Percutaneous Endoscopic Approach (ICD-10-PCS; principal; 2016-08-21 07:30)
PROC: 0W9G3ZZ Drainage of Peritoneal Cavity, Percutaneous Approach (ICD-10-PCS; 2016-08-27)
PROC: BB4BZZZ Ultrasonography of Pleura (ICD-10-PCS; 2016-08-27)
PROC: 0F798DZ Dilation of Common Bile Duct with Intraluminal Device, Via Natural or Artificial Opening Endoscopic (ICD-10-PCS; 2016-08-30)
PROC: BF101ZZ Fluoroscopy of Bile Ducts using Low Osmolar Contrast (ICD-10-PCS; 2016-08-30)
PROC: 0W9G3ZZ Drainage of Peritoneal Cavity, Percutaneous Approach (ICD-10-PCS; 2016-09-01)
PROC: BB4BZZZ Ultrasonography of Pleura (ICD-10-PCS; 2016-09-01)
DX: A41.9 Sepsis, unspecified organism (principal); N17.0 Acute kidney failure with tubular necrosis; K65.3 Choleperitonitis; E43 Unspecified severe protein-calorie malnutrition; E87.1 Hypo-osmolality and hyponatremia; R18.8 Other ascites; I48.4 Atypical atrial flutter; K56.7 Ileus, unspecified; D68.69 Other thrombophilia; E87.0 Hyperosmolality and hypernatremia; K22.10 Ulcer of esophagus without bleeding; K91.89 Other postprocedural complications and disorders of digestive system; K29.60 Other gastritis without bleeding; B19.20 Unspecified viral hepatitis C without hepatic coma; D47.3 Essential (hemorrhagic) thrombocythemia; D50.9 Iron deficiency anemia, unspecified; E04.1 Nontoxic single thyroid nodule; E05.90 Thyrotoxicosis, unspecified without thyrotoxic crisis or storm; E66.9 Obesity, unspecified; E78.5 Hyperlipidemia, unspecified; E86.0 Dehydration; E87.6 Hypokalemia; F17.200 Nicotine dependence, unspecified, uncomplicated; I10 Essential (primary) hypertension; I35.8 Other nonrheumatic aortic valve disorders; R06.6 Hiccough; Y83.8 Other surgical procedures as the cause of abnormal reaction of the patient, or of later complication, without mention of misadventure at the time of the procedure; E87.8 Other disorders of electrolyte and fluid balance, not elsewhere classified; I48.91 Unspecified atrial fibrillation; K76.89 Other specified diseases of liver; K81.9 Cholecystitis, unspecified; K82.8 Other specified diseases of gallbladder; N43.3 Hydrocele, unspecified; N45.1 Epididymitis; N50.89 Other specified disorders of the male genital organs; Z82.49 Family history of ischemic heart disease and other diseases of the circulatory system; Z68.27 Body mass index [BMI] 27.0-27.9, adult; Z86.010 Personal history of colon polyps; Z90.89 Acquired absence of other organs; Y92.89 Other specified places as the place of occurrence of the external cause
CPT/HCPCS: 36415; 49083; 71275; 74000; 74176; 74328; 76536; 76700; 76870; 78226; 78227; 80048; 80053; 80061; 80074; 81001; 82042; 82150; 82607; 82746; 83540; 83550; 83690; 83735; 84100; 84439; 84443; 84481; 84484; 85025; 85520; 85610; 86376; 86677; 87070; 87075; 87086; 87102; 87106; 87186; 87205; 87324; 87521; 88304; 88305; 89051; 93005; 93306; 96361; 96374; 96375; 99152; 99153; J0153; J0690; J0744; J1100; J1170; J1644; J1650; J1885; J1940; J2175; J2250; J2405; J2704; J2710; J3010; J3480; J3490; Q9967; A9537; C1769; C1894; C2625; C9113; C9898; J0330; J0360; J1200; J2270; J2370; J2765; J2805; J3475; J7030; J7040; S0028; S0074

== ENCOUNTER 2016-09-13 08:11 | Inpatient (IN) | payer OTHER ==
[~2016-09-13] VITALS: Ht 177.8 cm; Wt 75.0 kg
[~2016-09-13 08:11] MED LIST: ASCO500T6 PO; CIPR500T87 PO; DOCU-30 PO; FLEC100T PO; FLUC200T PO; LISI1TAB5 PO; LOVA40TA2 PO; METH10TA6 PO; METO25TA35 PO; METR500T PO; OXYC1TAB7 PO; OXYC5CAP4 PO
[2016-09-13 09:28] LABS: BLOOD UREA NITROGEN 5 mg/dL (7-18)
[2016-09-13 09:34] LABS: ASPARTATE AMINO TRANSFERASE 24 U/L (15-37)
[2016-09-13 09:38] LABS: IS PT STATUS REG ER OR PRE ER? YES
[2016-09-13] MEDS ORDERED: SODIUM CHLORIDE 0.9% 1,000 ML IV ONE (09:40)
[2016-09-13] MEDS ORDERED: PIPERACILLIN/TAZO/PMX 3.375GM 50 ML IVPB ONE (10:00)
[2016-09-13] MEDS ORDERED: SODIUM CHLORIDE FLUSH 10ML SYR IVF ONE (10:00)
[2016-09-13] MEDS ORDERED: SODIUM CHLORIDE 0.9% 1,000ML IVBOLUS ONE (10:00)
[2016-09-13] MEDS ORDERED: PIPERACILLIN/TAZO/PMX 3.375GM 50 ML ONE (10:10)
[2016-09-13] MEDS ORDERED: ONDANSETRON 2MG/ML, 2ML ONE (10:58)
[2016-09-13] MEDS ORDERED: ONDANSETRON 2MG/ML, 2ML IVPush ONE (11:00)
[2016-09-13] MEDS: FERROUS SULFATE 325 MG TABLET PO SCH ×2 (12:30→17:00)
[2016-09-13] MEDS: FUROSEMIDE 40 MG TABLET PO SCH (12:30)
[2016-09-13] MEDS: FLECAINIDE 100MG TABLET PO SCH ×2 (12:30→23:02)
[2016-09-13] MEDS ORDERED: CEFTRIAXONE PMX 2GM/50ML 50 ML IV SCH (12:30)
[2016-09-13 13:25] VITALS: BP 131/87
[2016-09-13] MEDS: ONDANSETRON 2MG/ML, 2ML IVPush PRN ×2 (14:47→21:31)
[2016-09-13] MEDS: morphine SULFATE 10 MG/ML, 1ML IVPush PRN ×4 (14:55→21:31)
[2016-09-13 15:10] VITALS: BP 131/87
[2016-09-13] MEDS: AZITHROMYCIN 500 MG in SODIUM CHLORIDE 0.9% 250 ML IV SCH (17:31)
[2016-09-13] MEDS: METOPROLOL TARTRATE 25 MG TABLET PO SCH (17:36)
[2016-09-13 17:37] VITALS: BP 131/87
[2016-09-13] MEDS: PANTOPRAZOLE 40 MG IV IVPush SCH (18:30)
[2016-09-13] MEDS ORDERED: SODIUM CHLORIDE 0.9% 1,000 ML IV SCH (19:00)
[2016-09-13 19:02] VITALS: BP 116/77
[2016-09-13] MEDS: SPIRONOLACTONE 25 MG TABLET PO SCH (19:51)
[2016-09-13] MEDS: LOVASTATIN 40 MG TABLET PO SCH (19:51)
[2016-09-13] MEDS: CODEINE SULFATE 30 MG TABLET PO SCH (19:57)
[2016-09-13] MEDS: ERTAPENEM 1 GM in SODIUM CHLORIDE 0.9% 50 ML IV SCH (23:05)
[2016-09-14] MEDS: morphine SULFATE 10 MG/ML, 1ML IVPush PRN ×8 (00:41→23:26)
[2016-09-14 00:51] VITALS: BP 114/73
[2016-09-14] MEDS: CODEINE SULFATE 30 MG TABLET PO SCH ×4 (02:37→20:00)
[2016-09-14] MEDS: ONDANSETRON 2MG/ML, 2ML IVPush PRN (03:41)
[2016-09-14] MEDS: METOPROLOL TARTRATE 25 MG TABLET PO SCH ×2 (05:19→16:37)
[2016-09-14] MEDS: PANTOPRAZOLE 40 MG IV IVPush SCH ×2 (06:41→20:21)
[2016-09-14 07:19] VITALS: BP 117/82
[2016-09-14] MEDS: FERROUS SULFATE 325 MG TABLET PO SCH ×3 (08:00→16:37)
[2016-09-14 08:18] LABS: ASPARTATE AMINO TRANSFERASE 20 U/L (15-37); BLOOD UREA NITROGEN 4 mg/dL (7-18)
[2016-09-14] MEDS: FUROSEMIDE 40 MG TABLET PO SCH (09:00)
[2016-09-14] MEDS: SPIRONOLACTONE 25 MG TABLET PO SCH ×2 (09:00→20:39)
[2016-09-14] MEDS ORDERED: LIDOCAINE 1%, 20ML ONE (09:27)
[2016-09-14] MEDS ORDERED: FENTANYL PF 100 MCG/2ML ONE (09:52)
[2016-09-14] MEDS ORDERED: MIDAZOLAM 1 MG/ML, 5ML ONE (09:52)
[2016-09-14] MEDS ORDERED: NALOXONE 1 MG/ML, 2ML ONE (09:52)
[2016-09-14] MEDS ORDERED: FLUMAZENIL 0.1 MG/1 ML, 5ML ONE (09:53)
[2016-09-14] MEDS: FLECAINIDE 100MG TABLET PO SCH (12:17)
[2016-09-14] MEDS: AZITHROMYCIN 500 MG in SODIUM CHLORIDE 0.9% 250 ML IV SCH (13:01)
[2016-09-14 15:15] VITALS: BP 123/70
[2016-09-14 18:56] VITALS: BP 122/73
[2016-09-14] MEDS: SODIUM CHLORIDE 0.9% 1,000 ML IV SCH (19:00)
[2016-09-14] MEDS: LOVASTATIN 40 MG TABLET PO SCH (20:39)
[2016-09-14] MEDS: ERTAPENEM 1 GM in SODIUM CHLORIDE 0.9% 50 ML IV SCH (22:39)
[2016-09-15] MEDS: FLECAINIDE 100MG TABLET PO SCH ×2 (00:30→12:58)
[2016-09-15 02:00] VITALS: BP 120/76
[2016-09-15] MEDS: CODEINE SULFATE 30 MG TABLET PO SCH ×4 (02:00→20:00)
[2016-09-15] MEDS: morphine SULFATE 10 MG/ML, 1ML IVPush PRN ×6 (02:59→21:04)
[2016-09-15 05:21] LABS: ASPARTATE AMINO TRANSFERASE 19 U/L (15-37); BLOOD UREA NITROGEN 7 mg/dL (7-18)
[2016-09-15] MEDS: METOPROLOL TARTRATE 25 MG TABLET PO SCH ×2 (06:00→17:17)
[2016-09-15 09:00] VITALS: BP 119/73
[2016-09-15] MEDS: PANTOPRAZOLE 40 MG IV IVPush SCH ×2 (09:24→21:05)
[2016-09-15] MEDS: FUROSEMIDE 40 MG TABLET PO SCH (09:24)
[2016-09-15] MEDS: SODIUM CHLORIDE 0.9% 1,000 ML IV SCH ×2 (09:25→22:30)
[2016-09-15] MEDS: SPIRONOLACTONE 25 MG TABLET PO SCH ×2 (09:25→22:30)
[2016-09-15] MEDS: FERROUS SULFATE 325 MG TABLET PO SCH ×3 (09:25→17:17)
[2016-09-15] MEDS: OXYcodone IR 5MG TABLET PO PRN ×3 (10:55→23:53)
[2016-09-15 12:25] VITALS: BP 116/72
[2016-09-15] MEDS: AZITHROMYCIN 500 MG in SODIUM CHLORIDE 0.9% 250 ML IV SCH (12:58)
[2016-09-15] MEDS: ONDANSETRON 2MG/ML, 2ML IVPush PRN (17:17)
[2016-09-15 20:31] VITALS: BP 127/72
[2016-09-15] MEDS: LOVASTATIN 40 MG TABLET PO SCH (22:30)
[2016-09-15] MEDS: ERTAPENEM 1 GM in SODIUM CHLORIDE 0.9% 50 ML IV SCH (22:30)
[2016-09-16] MEDS: FLECAINIDE 100MG TABLET PO SCH ×2 (01:03→12:01)
[2016-09-16] MEDS: CODEINE SULFATE 30 MG TABLET PO SCH ×4 (02:00→22:24)
[2016-09-16 03:16] VITALS: BP 143/81
[2016-09-16 05:06] LABS: BLOOD UREA NITROGEN 3 mg/dL (7-18)
[2016-09-16 05:10] LABS: ASPARTATE AMINO TRANSFERASE 25 U/L (15-37)
[2016-09-16] MEDS: morphine SULFATE 10 MG/ML, 1ML IVPush PRN ×3 (05:13→18:02)
[2016-09-16] MEDS: METOPROLOL TARTRATE 25 MG TABLET PO SCH ×2 (05:43→18:03)
[2016-09-16 07:29] VITALS: BP 132/71
[2016-09-16] MEDS: SODIUM CHLORIDE 0.9% 1,000 ML IV SCH (09:27)
[2016-09-16] MEDS: FUROSEMIDE 40 MG TABLET PO SCH (09:27)
[2016-09-16] MEDS: SPIRONOLACTONE 25 MG TABLET PO SCH ×2 (09:27→20:30)
[2016-09-16] MEDS: FERROUS SULFATE 325 MG TABLET PO SCH ×3 (09:27→18:02)
[2016-09-16] MEDS: PANTOPRAZOLE 40 MG IV IVPush SCH ×2 (09:27→18:03)
[2016-09-16] MEDS: AZITHROMYCIN 500 MG in SODIUM CHLORIDE 0.9% 250 ML IV SCH (12:01)
[2016-09-16 12:45] VITALS: BP 103/68
[2016-09-16] MEDS: FLUCONAZOLE 200 MG/100 ML 100 ML IV SCH (13:43)
[2016-09-16] MEDS: OXYcodone IR 5MG TABLET PO PRN ×2 (13:44→20:30)
[2016-09-16] MEDS: LOVASTATIN 40 MG TABLET PO SCH (20:30)
[2016-09-16 20:55] VITALS: BP 105/66
[2016-09-16] MEDS: ERTAPENEM 1 GM in SODIUM CHLORIDE 0.9% 50 ML IV SCH (22:24)
[2016-09-17] MEDS: FLECAINIDE 100MG TABLET PO SCH ×2 (00:11→11:40)
[2016-09-17] MEDS: morphine SULFATE 10 MG/ML, 1ML IVPush PRN ×5 (00:11→23:10)
[2016-09-17] MEDS: SODIUM CHLORIDE 0.9% 1,000 ML IV SCH ×2 (01:29→17:32)
[2016-09-17] MEDS: OXYcodone IR 5MG TABLET PO PRN ×4 (01:30→18:22)
[2016-09-17 04:21] VITALS: BP 131/81
[2016-09-17] MEDS: CODEINE SULFATE 30 MG TABLET PO SCH ×4 (04:30→20:41)
[2016-09-17 04:48] LABS: ASPARTATE AMINO TRANSFERASE 37 U/L (15-37); BLOOD UREA NITROGEN 2 mg/dL (7-18)
[2016-09-17] MEDS: METOPROLOL TARTRATE 25 MG TABLET PO SCH ×2 (05:33→17:18)
[2016-09-17] MEDS: PANTOPRAZOLE 40 MG IV IVPush SCH ×2 (06:16→17:32)
[2016-09-17 07:10] VITALS: BP 123/78
[2016-09-17] MEDS: FUROSEMIDE 40 MG TABLET PO SCH (09:22)
[2016-09-17] MEDS: FERROUS SULFATE 325 MG TABLET PO SCH ×3 (09:22→17:18)
[2016-09-17] MEDS: SPIRONOLACTONE 25 MG TABLET PO SCH ×2 (09:22→20:41)
[2016-09-17] MEDS: AZITHROMYCIN 500 MG in SODIUM CHLORIDE 0.9% 250 ML IV SCH (11:41)
[2016-09-17 12:15] VITALS: BP 128/67
[2016-09-17] MEDS: FLUCONAZOLE 200 MG/100 ML 100 ML IV SCH (13:51)
[2016-09-17 19:06] VITALS: BP 116/76
[2016-09-17] MEDS: LOVASTATIN 40 MG TABLET PO SCH (20:41)
[2016-09-17] MEDS: ERTAPENEM 1 GM in SODIUM CHLORIDE 0.9% 50 ML IV SCH (23:10)
[2016-09-18] MEDS: OXYcodone IR 5MG TABLET PO PRN ×4 (00:22→19:08)
[2016-09-18] MEDS: FLECAINIDE 100MG TABLET PO SCH ×2 (00:22→11:35)
[2016-09-18 01:30] VITALS: BP 122/74
[2016-09-18] MEDS: METOPROLOL TARTRATE 25 MG TABLET PO SCH ×2 (05:27→17:26)
[2016-09-18] MEDS: morphine SULFATE 10 MG/ML, 1ML IVPush PRN ×4 (05:28→23:30)
[2016-09-18] MEDS: CODEINE SULFATE 30 MG TABLET PO SCH ×4 (05:28→23:30)
[2016-09-18 06:08] LABS: BLOOD UREA NITROGEN 2 mg/dL (7-18)
[2016-09-18] MEDS: PANTOPRAZOLE 40 MG IV IVPush SCH ×2 (06:22→17:26)
[2016-09-18 08:27] VITALS: BP 117/73
[2016-09-18] MEDS: FUROSEMIDE 40 MG TABLET PO SCH (08:51)
[2016-09-18] MEDS: SPIRONOLACTONE 25 MG TABLET PO SCH ×2 (08:51→20:55)
[2016-09-18] MEDS: FERROUS SULFATE 325 MG TABLET PO SCH ×3 (08:51→17:26)
[2016-09-18] MEDS: SODIUM CHLORIDE 0.9% 1,000 ML IV SCH (08:52)
[2016-09-18] MEDS: AZITHROMYCIN 500 MG in SODIUM CHLORIDE 0.9% 250 ML IV SCH (11:35)
[2016-09-18] MEDS: FLUCONAZOLE 200 MG/100 ML 100 ML IV SCH (13:29)
[2016-09-18 13:46] VITALS: BP 110/74
[2016-09-18 19:29] VITALS: BP 107/65
[2016-09-18] MEDS: LOVASTATIN 40 MG TABLET PO SCH (20:55)
[2016-09-18] MEDS: CALCIUM CARBONATE 500 MG TAB.CHEW PO PRN (20:57)
[2016-09-18] MEDS: ERTAPENEM 1 GM in SODIUM CHLORIDE 0.9% 50 ML IV SCH (23:30)
[2016-09-19] MEDS: FLECAINIDE 100MG TABLET PO SCH ×2 (00:52→12:53)
[2016-09-19] MEDS: OXYcodone IR 5MG TABLET PO PRN ×4 (00:52→19:02)
[2016-09-19 02:55] VITALS: BP 102/61
[2016-09-19] MEDS: morphine SULFATE 10 MG/ML, 1ML IVPush PRN ×4 (05:32→23:47)
[2016-09-19] MEDS: METOPROLOL TARTRATE 25 MG TABLET PO SCH ×2 (05:32→18:03)
[2016-09-19] MEDS: CODEINE SULFATE 30 MG TABLET PO SCH ×3 (05:32→18:02)
[2016-09-19 05:55] LABS: BLOOD UREA NITROGEN 3 mg/dL (7-18)
[2016-09-19 05:58] LABS: ASPARTATE AMINO TRANSFERASE 28 U/L (15-37)
[2016-09-19] MEDS: PANTOPRAZOLE 40 MG IV IVPush SCH ×2 (06:19→18:03)
[2016-09-19 07:05] VITALS: BP 119/74
[2016-09-19] MEDS ORDERED: POTASSIUM CHLORIDE 20 MEQ TAB.ER.PRT PO ONE (09:00)
[2016-09-19] MEDS: FERROUS SULFATE 325 MG TABLET PO SCH ×3 (09:48→18:03)
[2016-09-19] MEDS: SPIRONOLACTONE 25 MG TABLET PO SCH ×2 (09:48→21:47)
[2016-09-19] MEDS: FUROSEMIDE 40 MG TABLET PO SCH (09:48)
[2016-09-19] MEDS: AZITHROMYCIN 500 MG in SODIUM CHLORIDE 0.9% 250 ML IV SCH (12:38)
[2016-09-19] MEDS: FLUCONAZOLE 200 MG/100 ML 100 ML IV SCH (13:52)
[2016-09-19 14:45] VITALS: BP 112/70
[2016-09-19 21:34] VITALS: BP 111/70
[2016-09-19] MEDS: LOVASTATIN 40 MG TABLET PO SCH (21:48)
[2016-09-19] MEDS: ERTAPENEM 1 GM in SODIUM CHLORIDE 0.9% 50 ML IV SCH (23:46)
[2016-09-20] MEDS: CODEINE SULFATE 30 MG TABLET PO SCH ×5 (00:38→23:43)
[2016-09-20] MEDS: FLECAINIDE 100MG TABLET PO SCH ×3 (00:38→23:43)
[2016-09-20 00:43] VITALS: BP 124/76
[2016-09-20] MEDS: CALCIUM CARBONATE 500 MG TAB.CHEW PO PRN ×2 (02:29→23:50)
[2016-09-20] MEDS: OXYcodone IR 5MG TABLET PO PRN ×4 (02:29→23:43)
[2016-09-20 05:55] LABS: BLOOD UREA NITROGEN 5 mg/dL (7-18)
[2016-09-20] MEDS: METOPROLOL TARTRATE 25 MG TABLET PO SCH ×2 (06:20→17:10)
[2016-09-20 08:57] VITALS: BP 113/70
[2016-09-20] MEDS: FUROSEMIDE 40 MG TABLET PO SCH (09:26)
[2016-09-20] MEDS: FERROUS SULFATE 325 MG TABLET PO SCH ×3 (09:26→17:10)
[2016-09-20] MEDS: SPIRONOLACTONE 25 MG TABLET PO SCH ×2 (09:26→20:58)
[2016-09-20] MEDS: PANTOPRAZOLE 40 MG IV IVPush SCH ×2 (09:26→20:57)
[2016-09-20] MEDS: AZITHROMYCIN 500 MG in SODIUM CHLORIDE 0.9% 250 ML IV SCH (13:43)
[2016-09-20] MEDS: morphine SULFATE 10 MG/ML, 1ML IVPush PRN ×2 (13:52→20:57)
[2016-09-20 14:45] VITALS: BP 110/74
[2016-09-20] MEDS: FLUCONAZOLE 200 MG/100 ML 100 ML IV SCH (15:33)
[2016-09-20 20:00] VITALS: BP 99/64
[2016-09-20] MEDS: LOVASTATIN 40 MG TABLET PO SCH (20:58)
[2016-09-20] MEDS: ERTAPENEM 1 GM in SODIUM CHLORIDE 0.9% 50 ML IV SCH (23:46)
[2016-09-21 02:00] VITALS: BP 114/69
[2016-09-21] MEDS: CODEINE SULFATE 30 MG TABLET PO SCH ×3 (05:48→17:54)
[2016-09-21] MEDS: morphine SULFATE 10 MG/ML, 1ML IVPush PRN ×2 (05:48→23:17)
[2016-09-21] MEDS: ONDANSETRON 2MG/ML, 2ML IVPush PRN ×2 (05:48→20:47)
[2016-09-21] MEDS: METOPROLOL TARTRATE 25 MG TABLET PO SCH ×2 (05:48→17:54)
[2016-09-21 06:39] VITALS: BP 109/68
[2016-09-21] MEDS: FUROSEMIDE 40 MG TABLET PO SCH (09:43)
[2016-09-21] MEDS: SPIRONOLACTONE 25 MG TABLET PO SCH ×2 (09:43→20:43)
[2016-09-21] MEDS: FERROUS SULFATE 325 MG TABLET PO SCH ×3 (09:43→17:54)
[2016-09-21] MEDS: PANTOPRAZOLE 40 MG IV IVPush SCH ×2 (09:43→20:43)
[2016-09-21] MEDS: OXYcodone IR 5MG TABLET PO PRN ×2 (10:23→20:42)
[2016-09-21] MEDS: FLECAINIDE 100MG TABLET PO SCH (12:59)
[2016-09-21] MEDS: AZITHROMYCIN 500 MG in SODIUM CHLORIDE 0.9% 250 ML IV SCH (13:00)
[2016-09-21 14:00] VITALS: BP 110/70
[2016-09-21] MEDS: FLUCONAZOLE 200 MG/100 ML 100 ML IV SCH (14:40)
[2016-09-21 16:20] VITALS: BP 110/70
[2016-09-21] MEDS: CALCIUM CARBONATE 500 MG TAB.CHEW PO PRN (17:54)
[2016-09-21 20:00] VITALS: BP 107/63
[2016-09-21] MEDS: LOVASTATIN 40 MG TABLET PO SCH (20:42)
[2016-09-21] MEDS: ERTAPENEM 1 GM in SODIUM CHLORIDE 0.9% 50 ML IV SCH (23:17)
[2016-09-22 02:00] VITALS: BP 106/68
[2016-09-22] MEDS: FLECAINIDE 100MG TABLET PO SCH ×3 (02:03→23:50)
[2016-09-22] MEDS: OXYcodone IR 5MG TABLET PO PRN ×2 (02:08→21:10)
[2016-09-22 05:59] LABS: BLOOD UREA NITROGEN 8 mg/dL (7-18)
[2016-09-22] MEDS: CODEINE SULFATE 30 MG TABLET PO SCH ×5 (06:00→23:50)
[2016-09-22 06:03] LABS: ASPARTATE AMINO TRANSFERASE 39 U/L (15-37)
[2016-09-22] MEDS: METOPROLOL TARTRATE 25 MG TABLET PO SCH ×2 (06:15→18:00)
[2016-09-22 07:53] VITALS: BP 118/68
[2016-09-22] MEDS: PANTOPRAZOLE 40 MG IV IVPush SCH (10:21)
[2016-09-22] MEDS: FERROUS SULFATE 325 MG TABLET PO SCH ×3 (10:21→17:01)
[2016-09-22] MEDS: SPIRONOLACTONE 25 MG TABLET PO SCH ×2 (10:21→21:12)
[2016-09-22] MEDS: FUROSEMIDE 40 MG TABLET PO SCH (10:21)
[2016-09-22] MEDS: morphine SULFATE 10 MG/ML, 1ML IVPush PRN ×2 (10:21→17:01)
[2016-09-22] MEDS: FLUCONAZOLE 200 MG/100 ML 100 ML IV SCH (13:37)
[2016-09-22 14:49] VITALS: BP 117/74
[2016-09-22] MEDS: PANTOPROZOLE 40MG TABLET PO SCH (17:01)
[2016-09-22 19:53] VITALS: BP 104/66
[2016-09-22] MEDS: LOVASTATIN 40 MG TABLET PO SCH (21:12)
[2016-09-22 23:49] VITALS: BP 117/75
[2016-09-22] MEDS: ERTAPENEM 1 GM in SODIUM CHLORIDE 0.9% 50 ML IV SCH (23:50)
[2016-09-23 01:18] VITALS: BP 104/59
[2016-09-23] MEDS: CODEINE SULFATE 30 MG TABLET PO SCH ×3 (04:56→17:36)
[2016-09-23] MEDS: METOPROLOL TARTRATE 25 MG TABLET PO SCH ×2 (04:57→17:36)
[2016-09-23 05:00] VITALS: BP 124/78
[2016-09-23] MEDS: OXYcodone IR 5MG TABLET PO PRN ×3 (05:02→21:06)
[2016-09-23] MEDS: PANTOPROZOLE 40MG TABLET PO SCH ×2 (07:41→17:36)
[2016-09-23 08:01] VITALS: BP 101/65
[2016-09-23] MEDS: FERROUS SULFATE 325 MG TABLET PO SCH ×3 (09:54→17:36)
[2016-09-23] MEDS: FUROSEMIDE 40 MG TABLET PO SCH (09:54)
[2016-09-23] MEDS: SPIRONOLACTONE 25 MG TABLET PO SCH ×2 (09:54→21:07)
[2016-09-23] MEDS: FLUCONAZOLE 200 MG/100 ML 100 ML IV SCH (12:54)
[2016-09-23] MEDS: FLECAINIDE 100MG TABLET PO SCH (12:54)
[2016-09-23 14:04] VITALS: BP 104/66
[2016-09-23 18:55] VITALS: BP 108/71
[2016-09-23] MEDS: LOVASTATIN 40 MG TABLET PO SCH (21:07)
[2016-09-23] MEDS: ERTAPENEM 1 GM in SODIUM CHLORIDE 0.9% 50 ML IV SCH (23:25)
[2016-09-24] MEDS: FLECAINIDE 100MG TABLET PO SCH ×2 (01:13→13:13)
[2016-09-24] MEDS: CODEINE SULFATE 30 MG TABLET PO SCH ×3 (01:13→13:13)
[2016-09-24 02:00] VITALS: BP 95/67
[2016-09-24] MEDS: OXYcodone IR 5MG TABLET PO PRN ×3 (04:42→13:13)
[2016-09-24 05:27] LABS: ASPARTATE AMINO TRANSFERASE 41 U/L (15-37); BLOOD UREA NITROGEN 10 mg/dL (7-18)
[2016-09-24] MEDS: METOPROLOL TARTRATE 25 MG TABLET PO SCH (06:28)
[2016-09-24 07:25] VITALS: BP 106/68
[2016-09-24] MEDS: FUROSEMIDE 40 MG TABLET PO SCH (09:00)
[2016-09-24] MEDS ORDERED: FERR325T20 PO (09:41)
[2016-09-24] MEDS ORDERED: CEFD300C37 PO (09:41)
[2016-09-24] MEDS ORDERED: POTA10TA5 PO (09:41)
[2016-09-24] MEDS ORDERED: TRAM50TA2 PO (09:41)
[2016-09-24] MEDS ORDERED: OMEP-110 PO (09:41)
[2016-09-24] MEDS ORDERED: FURO40TA6 PO (09:41)
[2016-09-24] MEDS ORDERED: FLUC200T4 PO (09:41)
[2016-09-24] MEDS ORDERED: LACT1CAP24 PO (09:41)
[2016-09-24] MEDS ORDERED: SPIR25TA PO (10:02)
[2016-09-24] MEDS: PANTOPROZOLE 40MG TABLET PO SCH (10:07)
[2016-09-24] MEDS: SPIRONOLACTONE 25 MG TABLET PO SCH (10:07)
[2016-09-24] MEDS: FERROUS SULFATE 325 MG TABLET PO SCH ×2 (10:07→13:13)
[2016-09-24 12:17] VITALS: BP 131/77
[2016-09-24] MEDS ORDERED: CEFTRIAXONE PMX 1GM/50ML 50 ML IV SCH (13:00)
[2016-09-24] MEDS: FLUCONAZOLE 200 MG/100 ML 100 ML IV SCH (13:30)
[2016-09-24] MEDS ORDERED: METRONIDAZOLE PMX 500MG/100ML 100 ML IV SCH (14:00)
== END 2016-09-24 15:25 | disposition home or self-care (01) | DRG 871 ==
LOC: ED 08:47 → EDIP 11:26 → SUATTDRO 11:31 → 4WST 13:23
PROVIDERS: ADMIT Internal Medicine; ATTEND Internal Medicine
PROC: 0F9130Z Drainage of Right Lobe Liver with Drainage Device, Percutaneous Approach (ICD-10-PCS; principal; 2016-09-14)
DX: A41.9 Sepsis, unspecified organism (principal); E43 Unspecified severe protein-calorie malnutrition; J18.9 Pneumonia, unspecified organism; J96.01 Acute respiratory failure with hypoxia; K85.90 Acute pancreatitis without necrosis or infection, unspecified; K75.0 Abscess of liver; I48.92 Unspecified atrial flutter; K91.89 Other postprocedural complications and disorders of digestive system; D64.9 Anemia, unspecified; D69.6 Thrombocytopenia, unspecified; N43.3 Hydrocele, unspecified; B19.20 Unspecified viral hepatitis C without hepatic coma; E05.90 Thyrotoxicosis, unspecified without thyrotoxic crisis or storm; E04.1 Nontoxic single thyroid nodule; I10 Essential (primary) hypertension; K72.90 Hepatic failure, unspecified without coma; D75.89 Other specified diseases of blood and blood-forming organs; K29.60 Other gastritis without bleeding; E87.6 Hypokalemia; K70.31 Alcoholic cirrhosis of liver with ascites; Z90.49 Acquired absence of other specified parts of digestive tract; Z68.23 Body mass index [BMI] 23.0-23.9, adult; Z90.89 Acquired absence of other organs; Z79.899 Other long term (current) drug therapy; Z87.891 Personal history of nicotine dependence; Z82.49 Family history of ischemic heart disease and other diseases of the circulatory system
CPT/HCPCS: 36415; 49405; 71020; 74177; 80048; 80053; 83605; 83690; 83735; 84100; 84145; 84443; 84484; 85014; 85018; 85025; 85610; 87040; 87070; 87075; 87106; 87186; 87205; 93005; 96361; 96365; 96375; 99156; 99157; J0456; J0696; J1335; J2250; J2405; J2543; J3010; J3490; 92523-GN; C1729; C1769; C9113; J1450; J2270; J2310; J7030; J7050

== ENCOUNTER 2017-09-20 06:42 | Day surgery (SDC) | payer OTHER ==
[2017-09-18 09:27] VITALS: BP 132/77
[~2017-09-20] VITALS: Ht 177.8 cm; Wt 76.9 kg
[~2017-09-20 06:42] MED LIST changes: +AMIT25TA PO; +ASCO250T2 PO; +CEFD300C37 PO; +DOCU-131 PO; -DOCU-30 PO; +ERGO500017 PO; +FERR325T18 PO; +FLUC200T4 PO; +FURO40TA6 PO; +HYDR10TA11 PO; +LACT1CAP24 PO; +MULT-516 PO; +OMEP-110 PO; +OXYC5CAP2 PO; -OXYC5CAP4 PO; +POTA10TA5 PO; +RISP0.5T3 PO; +RIVA20TA PO; +SPIR25TA PO; +TRAM50TA2 PO
[2017-09-20] MEDS ORDERED: EPINEPHRINE 1 MG/ML, 1ML ONE (06:50)
[2017-09-20] MEDS ORDERED: BUPIVACAINE/PF 0.5% ONE (06:50)
[2017-09-20] MEDS ORDERED: LACTATED RINGERS 1,000 ML IV SCH ×2 (07:02→10:06)
[2017-09-20 07:16] VITALS: BP 132/77
[2017-09-20] MEDS ORDERED: LIDOCAINE-MPF 1%, 2ML INFIL ONE (07:30)
[2017-09-20] MEDS ORDERED: GABAPENTIN 300 MG CAPSULE PO ONE (07:30)
[2017-09-20] MEDS ORDERED: OxyconTIN ER 10 MG TAB.ER PO ONE (07:30)
[2017-09-20] MEDS ORDERED: ACETAMINOPHEN 500 MG TABLET PO ONE (07:30)
[2017-09-20] MEDS ORDERED: FENTANYL PF 250 MCG/5ML ONE (07:54)
[2017-09-20] MEDS ORDERED: MIDAZOLAM 1 MG/ML, 2ML ONE (07:54)
[2017-09-20] MEDS ORDERED: ROCURONIUM 10MG/ML,5ML ONE (07:55)
[2017-09-20] MEDS ORDERED: PROPOFOL 10 MG/ML, 20ML ONE (07:55)
[2017-09-20] MEDS ORDERED: CEFAZOLIN 1,000 MG ONE ×2 (07:56)
[2017-09-20] MEDS ORDERED: NEOSTIGMINE 1 MG/ML, 10ML ONE (07:56)
[2017-09-20] MEDS ORDERED: GLYCOPYRROLATE 0.4 MG/2 ML, 2ML ONE (07:56)
[2017-09-20] MEDS ORDERED: WATER-INJECTION,STERILE 10 ML IV ONE (07:56)
[2017-09-20] MEDS ORDERED: HYDROCORTISONE 100 MG INJ. ONE (09:02)
[2017-09-20] MEDS ORDERED: PROMETHAZINE 25 MG SUPP PR PRN (09:30)
[2017-09-20] MEDS ORDERED: MORPHINE SULFATE 4 MG/ML, 1ML IVPush PRN ×2 (09:30→10:30)
[2017-09-20] MEDS ORDERED: MEPERIDINE/PF 25MG/0.5ML IVPush PRN (09:30)
[2017-09-20] MEDS ORDERED: FENTANYL PF 100 MCG/2ML IV PRN (09:30)
[2017-09-20] MEDS ORDERED: OXYcodone 5 MG/5 ML ORAL.SOL UDC PO PRN (09:30)
[2017-09-20] MEDS ORDERED: ONDANSETRON ODT 8 MG PO PRN (09:30)
[2017-09-20] MEDS ORDERED: PROMETHAZINE 12.5 MG SUPP PR PRN (09:30)
[2017-09-20] MEDS ORDERED: hydrALAzine 20 MG/ML, 1ML IV PRN (09:30)
[2017-09-20] MEDS ORDERED: HYDROmorphone 1 MG/ML, 1ML IV PRN (09:30)
[2017-09-20] MEDS ORDERED: LABETALOL 5MG/ML, 20ML IV PRN (09:30)
[2017-09-20] MEDS ORDERED: ONDANSETRON 2MG/ML, 2ML IVPush PRN (10:30)
[2017-09-20] MEDS ORDERED: KETOROLAC 30 MG/1 ML IVPush PRN (10:30)
[2017-09-20] MEDS ORDERED: HYDROcodone/APAP 5/325 TABLET PO PRN (10:30)
== END 2017-09-20 12:25 ==
LOC: OUT 06:42
PROVIDERS: ATTEND Thoracic Surgery (Cardiothoracic Vascular Surgery)
DX: K40.90 Unilateral inguinal hernia, without obstruction or gangrene, not specified as recurrent (principal); I48.91 Unspecified atrial fibrillation
CPT/HCPCS: 49650; 93005; C1781; J0171; J0690; J1720; J2250; J2704; J2710; J3010; J3490; J7120